=== PATIENT | female | born 1960 | race Caucasian/White ===

== ENCOUNTER 2021-07-31 09:28 | Emergency (ER) | payer OTHER ==
[2021-07-31] MEDS ORDERED: Cephalexin 500 MG Cap ONE (10:15)
[2021-07-31] MEDS ORDERED: Diphtheria,Pertussis(Acell),Tetanus Vaccine 0.5 ML SDV IM ONE (10:44)
[2021-07-31] MEDS ORDERED: Lidocaine 1% with EPINEPHrine 1:100,000 20 ML MDV INJECT ONE (10:44)
== END 2021-07-31 10:25 | disposition home or self-care (01) ==
LOC: LB.ED 09:28 → EDBD 09:28 → LB.ED 10:25
DX: S01.511A Laceration without foreign body of lip, initial encounter (principal); Z23 Encounter for immunization; W01.198A Fall on same level from slipping, tripping and stumbling with subsequent striking against other object, initial encounter
CPT/HCPCS: 12011; 90471; 90715; 99282; A9270; 99281